=== PATIENT | female | born 1960 | race Caucasian/White ===

== ENCOUNTER → 2019-05-22 | Outpatient (CLI) | payer OTHER ==
--- NOTE | 2019-05-22 15:05 | RAD ---
EXAM: Abdomen, 2 views. HISTORY: Pain. COMPARISON: None. FINDINGS: 2 views of the abdomen are obtained. There is moderate stool within the colon. No abnormally dilated loop of bowel is seen. There is a prominent cardiac silhouette. There is degenerative change involving the right hip and lower lumbar spine. IMPRESSION: Moderate colonic stool. Correlate for constipation. Electronically signed by: Allison Kulkarni MD (05/22/2019 3:03 PM) [id number]
== END | disposition home or self-care (01) ==
LOC: PMG 12:48
PROVIDERS: ATTEND Physician Assistant
DX: K59.09 Other constipation (principal); R10.32 Left lower quadrant pain; R10.13 Epigastric pain
CPT/HCPCS: 74019

== ENCOUNTER → 2019-06-05 | Outpatient (CLI) | payer OTHER ==
--- NOTE | 2019-06-05 12:31 | RAD ---
ABDOMEN SUPINE UPRIGHT INDICATION: Abdominal pain. COMPARISON: 05/22/2019. TECHNIQUE: Supine and upright views of the abdomen were obtained. FINDINGS: Nonobstructive bowel gas pattern. No free air. Moderate colonic stool burden Cardiomegaly. Lung bases are clear. No acute osseous abnormality. IMPRESSION: Moderate colonic stool burden, similar to the prior exam. Electronically signed by: Santos Rust MD (06/05/2019 12:28 PM) [id number]
== END | disposition home or self-care (01) ==
LOC: PMG 09:45
PROVIDERS: ATTEND Physician Assistant
DX: I51.7 Cardiomegaly (principal)
CPT/HCPCS: 74019